=== PATIENT | female | born 1970 | race Caucasian/White ===

== ENCOUNTER → 2022-08-31 | Outpatient (CLI) | payer OTHER ==
[2022-08-31 17:10] LABS: INR 0.9 (<1.2)
[2022-08-31 21:17] LABS: Appearance,Urine Cloudy (Clear); Bilirubin,Urine Negative (Negative); Blood,Urine Negative (Negative); Color,Urine Yellow (Yellow); Ketones,Urine Trace mg/dL (Negative); Nitrite,Urine Negative (Negative); Specific Gravity,Urine 1.026 (1.001-1.030); Urobilinogen,Urine 0.2 (0.2,1.0)
[2022-08-31 21:20] LABS: Bacteria,Urine 2+ /HPF (None Seen)
[2022-09-01 02:02] LABS: African American GFR (CKD) 114.6 (60.0-200.0); Albumin 4.3 g/dL (3.8-4.9); Albumin/Globulin Ratio 1.39 (1.60-3.17); Anion Gap 12.2 mmol/L (10.00-18.00); BUN/Creat Ratio 20.57 Ratio (12.00-20.00); Blood Urea Nitrogen 14.4 mg/dL (9.0-27.0); Calcium 9.5 mg/dL (8.7-10.3); Carbon Dioxide 25.8 mmol/L (20.0-27.5); Globulin 3.1 g/dL (1.6-3.3); Non-African American GFR(CKD) 98.9 (60.0-200.0); Total Bilirubin 0.4 mg/dL (0.30-1.20); Total Protein 7.4 g/dL (6.2-8.2)
[2022-09-01 02:09] LABS: HCT 44.6 % (37.2-46.3); HGB 14.4 g/dL (12.0-15.0); MCH 31.1 pg (27.0-32.0); MCHC 32.3 g/dL (32.0-37.0); MCV 96.3 fL (80.0-97.0); Mean Platelet Volume 10.4 fL (9.5-12.2); NRBC Per 100 WBC 0 /100 WBCS (0.0-0.0); Platelet Count 305 X 10*3/uL (140-440); RBC 4.63 X 10*6/uL (4.10-5.20); WBC 8.91 X 10*3/uL (4.50-10.00)
== END | disposition home or self-care (01) ==
LOC: LABPAT 16:24
PROVIDERS: ATTEND Orthopaedic Surgery
DX: Z01.812 Encounter for preprocedural laboratory examination (principal); M17.11 Unilateral primary osteoarthritis, right knee
CPT/HCPCS: 80053; 81001; 85027; 85610; 85730; 87070

== ENCOUNTER 2022-09-12 07:38 | Observation (INO) | payer OTHER ==
[2022-06-28 12:18] VITALS: BMI 53.9
[~2022-09-12 07:38] MED LIST: ACETAMINOPHEN TAB 500 MG TAB PO PRN; DEXAMETHASONE SOD PHOSPHATE 4 MG/ML 1 ML VIAL IV ONE; GABAPENTIN 300 MG CAP PO PRN; HYDROmorphone 0.5 MG/0.5 ML SYRINGE IVP PRN; LIDOCAINE 1% (10MG/ML) FOR IV START INTRADERMA PRN; MELOXICAM 7.5 MG TAB PO PRN; MIDAZOLAM 2 MG/2 ML VIAL IV PRN; ONDANSETRON 4 MG/2 ML VIAL IVP ONE; TRANEXAMIC ACID IN NACL,ISO-OS 1,000 MG in SALINE 1 100ML.BAG IVPB PRN; ceFAZolin 3 GM in SODIUM CHLORIDE 0.9% 100 ML IVPB PRN
[2022-09-12] MEDS: LACTATED RINGERS 1,000 ML IV SCH (08:15)
[2022-09-12] MEDS ORDERED: bisacodyL 10 MG SUPP RECTAL PRN (08:49)
[2022-09-12] MEDS ORDERED: NALOXONE 0.4 MG/ML 1 ML VIAL IV PRN (08:49)
[2022-09-12] MEDS ORDERED: MAGNESIUM HYDROXIDE 2,400 MG/10 ML CUP PO PRN (08:49)
[2022-09-12] MEDS ORDERED: ONDANSETRON 4 MG/2 ML VIAL IVP PRN (08:49)
[2022-09-12] MEDS ORDERED: HYDROmorphone 0.5 MG/0.5 ML SYRINGE IVP PRN ×2 (08:49)
[2022-09-12] MEDS ORDERED: NA PHOS,M-B/NA PHOS,DI-BA 133 ML ENEMA RECTAL PRN (08:49)
[2022-09-12] MEDS ORDERED: HYDROcodone/APAP 7.5-325MG 1 EACH TAB PO PRN (08:50)
[2022-09-12] MEDS ORDERED: MIDAZOLAM 2 MG/2 ML VIAL IVP ONE (08:57)
[2022-09-12] MEDS ORDERED: ceFAZolin 1,000 MG in SODIUM CHLORIDE 0.9% 1,000 ML IRRIGATION ONE (09:18)
[2022-09-12] MEDS ORDERED: MIDAZOLAM 2 MG/2 ML VIAL ONE (09:18)
[2022-09-12] MEDS ORDERED: SODIUM CHLORIDE 0.9% (PF) 10 ML VIAL ONE (09:18)
[2022-09-12] MEDS ORDERED: ROPIVACAINE 5 MG/ML 30 ML VIAL ONE (09:18)
[2022-09-12] MEDS ORDERED: fentaNYL (PF) 50 MCG/ML 2 ML AMP ONE (09:18)
[2022-09-12] MEDS ORDERED: TRANEXAMIC ACID IN NACL,ISO-OS 1,000 MG/100 ML BAG ONE (09:18)
[2022-09-12] MEDS ORDERED: diphenhydrAMINE 50 MG/ML 1 ML VIAL ONE (09:18)
[2022-09-12] MEDS ORDERED: DEXAMETHASONE SOD PHOSPHATE 10 MG/ML 1 ML VIAL ONE (09:18)
[2022-09-12] MEDS ORDERED: LACTATED RINGERS 1,000 ML IV ONE (10:17)
--- NOTE | 2022-09-12 10:29 | P.OP ---
Date of Procedure: 09/12/22 Preoperative Diagnosis: Severe osteoarthritis right knee Postoperative Diagnosis: Severe osteoarthritis right knee Procedure(s) Performed: Right total knee arthroplasty Implants: Monte[employer] Nephew Journey II CR Oxinium cruciate retaining femoral component size 4, right [employer] Journey nonporous tibial baseplate size 3, right [employer] Journey II, XLPE Deep Dished articular insert, size 11 mm, Size 3-4, right [employer] Journey Kelin II resurfacing patellar component, oval, 32 mm All components were cemented using Palacos R bone cement The articulation is Oxinium on polyethylene Anesthesia: spinal Surgeon: Remigio Jane Cigar Head Perforator #1: Magnolia Little Estimated Blood Loss (ml): 50 Pathology: other (Bone and cartilage) Condition: stable Disposition: PACU Indications for Procedure: The patient's knee is end-stage, and conservative management has failed. The operation of knee replacement has been discussed at length in the office, as well as potential risks and complications. These are inclusive of, but not limited to: Infection, bleeding, scarring, discomfort, stiffness, blood vessel and nerve damage, need for further surgery, failure to relieve symptoms, persistence, recurrence, or worsening of problems, loosening, dislocation, wear, blood clot, pulmonary embolism, , gait dysfunction, stiffness, and other risks as discussed in the office. Patient elects to proceed and the consent form has been signed. Operative Findings: The operative findings are consistent with severe osteoarthritis of the right knee Description of Procedure: Patient was seen in the preoperative area and the consent was reviewed and the operative site was marked with a skin marker. The patient verified the procedure and the operative site. An adductor canal pain catheter and an IPACK block were placed by anesthesia in the preoperative area. The patient was then brought to the operating room and positioned on the operating room table in the supine position. Preoperative antibiotics and a gram of transexamic acid were given intravenously. A spinal anesthetic was administered by the anesthesia department. Care was taken to make sure that all pressure points were adequately padded. A tourniquet was placed on the upper thigh and the lower extremity was prepped with ChloraPrep and draped in usual sterile fashion. A universal timeout was then performed which confirmed the patient's name, surgical site, ALLERGIES, and consent. The lower extremity was then exsanguinated and tourniquet was inflated to 250 mmHg. A standard anterior midline approach to the knee was performed. The skin and subcutaneous tissue were sharply dissected down to the patellar tendon. A medial parapatellar arthrotomy was then performed. The knee was then extended, the patellar was everted, and the knee was flexed. The infra-patellar fat pad was removed in order to enhance exposure. The anterior horns of both menisci were excised, and a release was performed to the posterior medial aspect of the knee. On gross visual inspection, there was complete loss of articular cartilage in the medial and patellofemoral joint spaces. There was also significant cartilage damage in the lateral compartment. There were multiple periarticular osteophytes globally about the knee which were then removed with a Ronguer. The femoral canal was then opened with the 9.5 mm intramedullary drill. The 8 mm intramedullary riddhi was then inserted into the femoral canal with the distal femoral cutting guide set for 5 of valgus. The distal femoral cutting block was then pinned in place. The intramedullary riddhi was then removed, and the distal femur was then cut. The cutting block was then removed and the cut was checked for symmetry. The resected bone was then measured to confirm the appropriate distal femoral resection. Next, the sizing guide was then placed and set for 3 external rotation based off of the epicondylar axis and Elliot's line. Pins were then placed and the drill holes, and the femur was sized with the sizing stylus. The pins were then removed, and the sizing guide was then removed. The spikes of the appropriate size femoral block was then placed into the predrilled holes, and malleted into place. Two 45 mm pins were then placed into the fixation holes on the cutting block. An michael wing was then used to ensure there would be no notching with the anterior cut. The anterior condyles were cut without notching. The anterior chord cut was then performed, followed by the posterior cut, posterior chamfer cut, and the anterior chamfer cut. The collateral ligaments were protected during the entire process. The cutting block was then removed. Any remaining bone and osteophytes were removed from the femur with a Ronguer. Attention was then directed to the tibia. The remaining ACL was removed with a Ronguer, and the tibia was then gently subluxed forward with a large bent knee retractor. Any remaining menisci were excised. The posterior lateral corner was cauterized in order to coagulate the lateral geniculate artery. The extra medullary tibial cutting guide was then placed, set for the appropriate rotation, slope, and depth of resection. The proximal tibia cutting guide was then pinned in place. Proximal tibia was then cut and sized. A curved osteotome was then used to remove any posterior osteophytes from the distal femur. The femoral trial was placed. A narrow saw blade was then used to remove the anterior intracondylar femoral bone. The CR notch trial was then placed. The tibial trial was placed with the appropriate-sized insert. The knee was able to fully extend and flex to 130 and was stable throughout all range of motion. The knee was then extended and the patella was everted. Patella was then measured, and then using an osteotomy guide, the patella was cut at the appropriate level. The patellar component was sized. The patellar drill guide was placed and the patella was drilled. The patella trial was then placed. The knee was then taken through range of motion with the patella trial and the patella tracked normally using the no thumbs technique. The patella trial was then removed. The knee was then flexed and lug holes were drilled through the femoral trial and the femoral trial was then removed. The tibial was then re- exposed, and the tibial broach guide was then pinned in place after it was set for the appropriate rotation to allow for the most coverage without overhang. The tibia was then reamed and broached. The femoral canal was plugged with autologous bone. The cut surfaces of bone were then irrigated with pulsatile lavage. The knee was also irrigated with Irrisept solution. The components were then opened, the cement was mixed. Cement was placed on the backside of the femoral, tibial, and patellar components. Cement was then applied to the tibial surface and pressurized into the surface using finger pressurization technique. The tibial component was then applied and excess cement was removed after it was impacted securely noted to be flush with the cut surface. In similar fashion, the cement was applied to the cut femoral surface, pressurized and using finger pressurization the component was impacted in place. Excess cement was removed. The polyethylene spacer was then implanted and locked into position. Patellar component was then applied in a similar technique and the patellar clamp was used to hold patella in place while the cement hardened. The knee was held in full extension while the cement hardened. Once the cement had fully hardened, the knee was reinspected. Any other cement extrusion was removed the final range of motion testing showed range of motion from 0-130 with excellent stability, both medial and laterally and appropriate alignment of the leg. Patella tracked normally. After the cemented hardened, the tourniquet was released and hemostasis was obtained. A second gram of transexamic acid was given intravenously. The knee was again irrigated. The knee was again taken through range of motion and found to be stable throughout all range of motion of 0-130, and the patella tracked normally. The fascia was then closed with 0 Vicryl followed by #2 strata fix suture. The subcutaneous tissue was closed with 3-0 Vicryl and 3-0 strata fix. Exofin glue was used for the skin and placed with the knee in flexion. After the glue had dried, and Optafoam silver impregnated dressing was applied. A lightly compressive dressing was applied using web roll and Adeel wrap. Patient was then transferred to the stretcher and taken to recovery room in stable condition. Sponge and needle counts were correct. The assistant education director HERMELINDA Last was required due the complexity surgery and the need for a skilled operating room surgical technologist. She assisted in positioning, draping, retraction, and closure of the wound.
[2022-09-12] MEDS ORDERED: ROPIVACAINE 1,100 MG, SODIUM CHLORIDE 0.9% 500 ML 330 ML, EMPTY PAIN BALL 1 EACH MISCELLANE PRN ×2 (11:20)
[2022-09-12] MEDS: SODIUM CHLORIDE 0.9% 1,000 ML IV SCH (12:16)
--- NOTE | 2022-09-12 12:23 | XR ---
EXAMINATION TYPE: XR knee limited RT DATE OF EXAM: 09/12/2022 COMPARISON: NONE TECHNIQUE: Two views submitted HISTORY: Post op FINDINGS: There is a prosthetic knee in near anatomic alignment. There is soft tissue edema and emphysema. IMPRESSION: 1. Postoperative change. Appears in near-anatomic alignment
[2022-09-12] MEDS ORDERED: ALPRAZolam 0.25 MG TAB PO PRN (13:17)
--- NOTE | 2022-09-12 14:39 | P.CONS ---
History of Present Illness - Reason for Consult Consult date: 09/12/22 Medical Management Requesting physician: Remigio Jane - History of Present Illness History of Presenting Illness: Patient is a very pleasant 52-year-old female with a past medical history of rheumatoid arthritis, inflammatory bowel disease, obstructive sleep apnea CPAP dependent nightly, hypertension, asthma, anxiety and depression and osteoarthritis. Patient is currently admitted under orthopedic surgery team status post elective right total knee arthroplasty secondary to severe osteoarthritis of right knee. We have been consulted for medical management throughout patient's hospitalization. Patient seen and fully evaluated at bedside. Patient currently remains slightly sedated but easily awoken via verbal stimuli. Patient currently reports feeling sleepy but denies having any complaints at this time. Patient reports postoperative pain is currently controlled and denies having any postoperative nausea or vomiting. Patient denies having any headache, lightheadedness, dizziness, chest pain, palpitations, shortness of breath, or any other complaints at this time. Review of systems: Pertinent positives and negatives as discussed in HPI, a complete review of systems was performed and all other systems are negative. Physical exam: Vital signs reviewed and stable. General: Nontoxic, no distress and appears stated age. Obese Derm: Skin warm and dry, normal coloration for ethnicity. Postsurgical Dressing/Adeel wrap is clean dry and intact to right lower extremity Head: Atraumatic, normocephalic and symmetric. Eyes: EOMs intact, no lid lag, and anicteric sclera Mouth: no lip lesions, mucus membranes moist Cardiovascular: regular rate and rhythm with normal S1S2, no murmur, positive posterior tibial pulses bilaterally, and cap refill < 2 seconds. Lungs: Respirations even, regular, and unlabored on room air. Lungs CTA bilaterally, no rhonchi, no rales, no wheezing, and no accessory muscle usage. Abdominal: soft, nontender to palpation, no guarding, no appreciable organomegaly Ext: ROM intact. No gross muscle atrophy, no edema, no contractures Neuro: Speech clear, face symmetrical and CN II-XII grossly intact with no noted focal neuro deficits Psych: Alert and oriented to person, place, time, and situation. Appropriate and pleasant affect. Assessment and Plan of Care: Status post right total knee arthroplasty Severe osteoarthritis Management per primary admitting orthopedic surgery team including DVT prophylaxis, pain management, wound/dressing care, weightbearing, and PT/OT. DVT Prophylaxis currently with aspirin 325 mg twice daily. Order placed for morning CBC and BMP and we will follow-up with results and place additional orders as needed based upon these findings. Obstructive sleep apnea Order placed for CPAP nightly and well mapping Rheumatoid arthritis Inflammatory bowel disease Hypertension Anxiety and depression Home medications reviewed. Patient to continue with sulfasalazine 500 mg nightly, metoprolol 50 mg daily, duloxetine 20 mg daily, Zyrtec 10 mg daily, and as needed Xanax 0.125 mg 3 times daily. Thank you for allowing us to participate in the care of this pleasant patient. Do not hesitate to contact us with questions. Someone can be reached from the [facility] hospitalist group all hours of the day at [phone] or via [employer]. Patient was seen independently by Nurse Practitioner. This document was prepared using [employer] dictation software. Please allow for errors in glazing department supervisor while rare they do occur. Past Medical History Past Medical History: Asthma, Hypertension, Rheumatoid Arthritis (RA), Sleep Apnea/CPAP/BIPAP Additional Past Medical History / Comment(s): had molar pulled due to old filling and tooth being sensitive-placed on amoxicillin prophylactically & finishing dose this week. CPAP use, COVID infection Apr 2022-(in bed for 3 weeks,continue to have long covid symptoms),has fast heart rate History of Any Multi-Drug Resistant Organisms: None Reported Past Surgical History: Cholecystectomy, Joint Replacement, Orthopedic Surgery Additional Past Surgical History / Comment(s): Total left knee replacement. Right achilles tendon repair. Past Anesthesia/Blood Transfusion Reactions: No Reported Reaction Additional Past Anesthesia/Blood Transfusion Reaction / Comm: Mother hard time waking up. No hx blood transfusion Past Psychological History: ADD/ADHD, Anxiety Additional Psychological History / Comment(s): ADD. Smoking Status: Never smoker Past Alcohol Use History: None Reported Past Drug Use History: None Reported - Past Family History Father Family Medical History: Cancer Additional Family Medical History / Comment(s): Prostate cancer. Sister(s) Family Medical History: Cancer Additional Family Medical History / Comment(s): 1st sister had breast and bone cancer and 2nd sister had melanoma. Medications and Allergies Home Medications Medication Instructions Recorded Confirmed Type ALPRAZolam [Xanax] 0.125 mg PO TID PRN 06/28/22 09/12/22 History Adalimumab [Humira(Cf) Pen] 80 mg SQ Q14D 06/28/22 09/12/22 History DULoxetine HCL [Cymbalta] 20 mg PO HS 06/28/22 09/12/22 History Etodolac [Lodine] 500 mg PO BID 06/28/22 09/12/22 History Folic Acid 1 mg PO DAILY 06/28/22 09/12/22 History Lisdexamfetamine Dimesylate 50 mg PO DAILY 06/28/22 09/12/22 History [Vyvanse] Tolterodine ER [Detrol LA] 4 mg PO DAILY 06/28/22 09/12/22 History sulfaSALAzine [Azulfidine] 500 mg PO HS 06/28/22 09/12/22 History Metoprolol Succinate (ER) [Toprol 50 mg PO QAM 09/06/22 09/12/22 History Xl] metHOTREXate sodium [Methotrexate] 17.5 mg PO FR 09/06/22 09/12/22 History Aspirin 325 mg PO BID #60 tab 09/12/22 Rx Cetirizine HCl [Zyrtec] 10 mg PO DAILY 09/12/22 09/12/22 History HYDROcodone/APAP 7.5-325MG [[place] 1 - 2 tab PO Q6H PRN #32 tab 09/12/22 Rx 7.5-325] Sennosides [Senokot] 2 tab PO DAILY PRN #60 tablet 09/12/22 Rx Allergies Allergy/AdvReac Type Severity Reaction Status Date / Time latex Allergy Rash/Hives Verified 09/06/22 13:32 FREEDOM WIPES AdvReac Itching Uncoded 09/12/22 09:17 Physical Exam Vitals: Vital Signs Temp Pulse Pulse Resp BP BP Pulse Ox 09/12/22 12:46 97.7 F 77 17 90/60 98 09/12/22 12:25 77 16 106/56 97 09/12/22 12:10 79 16 85/52 99 09/12/22 11:55 78 16 86/49 98 09/12/22 11:40 78 16 92/50 97 09/12/22 11:25 80 16 88/49 97 09/12/22 11:11 85 16 91/50 96 09/12/22 10:56 97.5 F L 87 16 82/46 92 L 09/12/22 09:10 78 16 106/70 96 09/12/22 08:15 80 104/63 09/12/22 07:59 98.6 F 86 16 99/54 98 Intake and Output 09/11/22 09/12/22 09/12/22 22:59 06:59 14:59 Intake Total 2501 Output Total 50 Balance 2451 Intake: IV 2501 Output: Estimated Blood Loss 50 Other: Weight 136 kg
[2022-09-12] MEDS: HYDROmorphone 1 MG/ML 1 ML SYRINGE IVP PRN ×2 (16:58→20:11)
[2022-09-12] MEDS: ceFAZolin 3 GM in SODIUM CHLORIDE 0.9% 100 ML IVPB SCH (16:58)
[2022-09-12] MEDS: ASPIRIN 325 MG TAB PO SCH (20:23)
[2022-09-12] MEDS ORDERED: sulfaSALAzine 500 MG TAB PO SCH (21:00)
[2022-09-12] MEDS ORDERED: SENNOSIDES-DOCUSATE SODIUM 1 EACH TAB PO SCH (21:00)
[2022-09-12] MEDS ORDERED: DULoxetine HCL 20 MG CAPSULE.DR PO SCH (21:00)
--- NOTE | 2022-09-12 22:40 | P.ANPRN ---
Procedure Note - Anesthesia - Nerve Block Performed Right Adductor Canal Infusion Date of Procedure: 09/12/22 Procedure Start Time: 08:56 Procedure Stop Time: 09:00 Location of Patient: PreOp Indication: Acute Post-Operative Pain, Requested by Surgeon Sedation Type: Sedate with meaningful contact maintained Preparation: Sterile Prep Position: Supine Catheter Depth at Skin (cm): 8 Catheter: Indwelling Needle Types: On-Q Needle Gauge: 20 Ultrasound used to visualize needle placement: Yes Ultrasound used to observe medication spread: Yes Injectate: 0.5% Ropivacaine (see comment for volume) (15mL) Blood Aspirated: No Pain Paresthesia on Injection Noted: No Resistance on Injection: Normal Image Stored and Saved: Yes Events: Uneventful and Well Tolerated Right iPack Single Date of Procedure: 09/12/22 Procedure Start Time: :00 Procedure Stop Time: 09:05 Location of Patient: PreOp Indication: Acute Post-Operative Pain, Requested by Surgeon Sedation Type: Sedate with meaningful contact maintained Preparation: Sterile Prep Position: Supine Needle Types: Pajunk Needle Gauge: 20 Ultrasound used to visualize needle placement: Yes Ultrasound used to observe medication spread: Yes Injectate: 0.5% Ropivacaine (see comment for volume) (15mL) Blood Aspirated: No Pain Paresthesia on Injection Noted: No Resistance on Injection: Normal Image Stored and Saved: Yes Events: Uneventful and Well Tolerated
[2022-09-13] MEDS: SODIUM CHLORIDE 0.9% 1,000 ML IV SCH (00:20)
[2022-09-13] MEDS: HYDROcodone/APAP 7.5-325MG 1 EACH TAB PO PRN ×3 (00:21→12:59)
[2022-09-13] MEDS: ceFAZolin 3 GM in SODIUM CHLORIDE 0.9% 100 ML IVPB SCH (00:28)
[2022-09-13] MEDS: HYDROmorphone 1 MG/ML 1 ML SYRINGE IVP PRN ×2 (01:38→10:36)
[2022-09-13] MEDS: LACTATED RINGERS 1,000 ML IV SCH (05:11)
--- NOTE | 2022-09-13 07:01 | P.PN ---
Progress Note - Text Progress Note Date: 09/13/22 Anesthesia progress note: POD#1 right total knee with Dr. Jane. Adductor canac nerve block catheter in place. Patient states pain is 7/10 with numbness over the anterior aspect of the knee from the nerve block. Patient denies headache, lightheadeness, dizziness, ringing in ears or numbness in the mouth.
[2022-09-13 07:26] VITALS: BP 95/58; PULSE 100; TEMP 98.3
--- NOTE | 2022-09-13 07:46 | P.DS ---
Providers Expected date of discharge: 09/13/22 Attending physician: Remigio Jane Consults: 09/12/22 08:49 Consult Physician Routine Consulting Provider: Baldemar Courtney Consult Reason/Comments: medical management Do you want consulting provider notified?: Yes Primary care physician: Angel Schmitz - Discharge Diagnosis(es) (1) Primary localized osteoarthritis of right knee Current Visit: Yes Status: Acute (2) Status post total right knee replacement Current Visit: Yes Status: Acute Hospital Course: This is a 52-year-old female who was last seen with complaint of continued right knee pain. The patient has a known history of degenerative arthritis of the right knee and presents to discuss surgical options. After discussion and consideration the patient elects to proceed with total right knee arthroplasty. The patient is seen preoperatively by her primary care physician and cleared for surgery. The patient is admitted to [facility] for total right knee arthroplasty. The procedures performed without complication or sequelae. Pat ient is doing well postoperatively. Vital signs are stable at discharge. Labs are stable at discharge. the patient is ambulating well with walker with minimal assistance. The patient is discharged to home on postop day #1 pending medical clearance. Please see orders and refer to the med rec for accurate list of medications. Patient Condition at Discharge: Good Plan - Discharge Summary Discharge Rx Participant: Yes New Discharge Prescriptions: New HYDROcodone/APAP 7.5-325MG [[place] 7.5-325] 1 - 2 tab PO Q6H PRN #32 tab PRN Reason: Pain Sennosides [Senokot] 2 tab PO DAILY PRN #60 tablet PRN Reason: Constipation Aspirin 325 mg PO BID #60 tab No Action DULoxetine HCL [Cymbalta] 20 mg PO HS Lisdexamfetamine Dimesylate [Vyvanse] 50 mg PO DAILY Adalimumab [Humira(Cf) Pen] 80 mg SQ Q14D sulfaSALAzine [Azulfidine] 500 mg PO HS Etodolac [Lodine] 500 mg PO BID ALPRAZolam [Xanax] 0.125 mg PO TID PRN PRN Reason: Anxiety Tolterodine ER [Detrol LA] 4 mg PO DAILY Folic Acid 1 mg PO DAILY Metoprolol Succinate (ER) [Toprol Xl] 50 mg PO QAM metHOTREXate sodium [Methotrexate] 17.5 mg PO FR Cetirizine HCl [Zyrtec] 10 mg PO DAILY Discharge Medication List ALPRAZolam [Xanax] 0.125 mg PO TID PRN 06/28/22 [History] Adalimumab [Humira(Cf) Pen] 80 mg SQ Q14D 06/28/22 [History] DULoxetine HCL [Cymbalta] 20 mg PO HS 06/28/22 [History] Etodolac [Lodine] 500 mg PO BID 06/28/22 [History] Folic Acid 1 mg PO DAILY 06/28/22 [History] Lisdexamfetamine Dimesylate [Vyvanse] 50 mg PO DAILY 06/28/22 [History] Tolterodine ER [Detrol LA] 4 mg PO DAILY 06/28/22 [History] sulfaSALAzine [Azulfidine] 500 mg PO HS 06/28/22 [History] Metoprolol Succinate (ER) [Toprol Xl] 50 mg PO QAM 09/06/22 [History] metHOTREXate sodium [Methotrexate] 17.5 mg PO FR 09/06/22 [History] Aspirin 325 mg PO BID #60 tab 09/12/22 [Rx] Cetirizine HCl [Zyrtec] 10 mg PO DAILY 09/12/22 [History] HYDROcodone/APAP 7.5-325MG [[place] 7.5-325] 1 - 2 tab PO Q6H PRN #32 tab 09/12/22 [Rx] Sennosides [Senokot] 2 tab PO DAILY PRN #60 tablet 09/12/22 [Rx] Follow up Appointment(s)/Referral(s): Remigio Jane DO [Doctor of Osteopathic Medicine] - 2 Weeks Ambulatory/Diagnostic Orders: Continuous Passive Motion (CPM) Machine [DME.AMB1] Time Frame: 3 Weeks, Facility: [facility], Location: Case Management Continuous Passive Motion (CPM) Machine [DME.AMB1] Time Frame: 3 Weeks, Facilit y: [facility], Location: Case Management Activity/Diet/Wound Care/Special Instructions: Weightbearing as tolerated with a walker. CPM 5-6h daily as tolerated. Leave dressing intact. Dressing may be removed by home care nurse or by patient in 7 days. Then change dressing twice daily until follow up. May shower with initial dressing intact and after removal. If dressing become saturated, please remove. Recommend use of compression stockings daily until follow up to help prevent swelling and blood clots. May remove at night before sleeping. Please take aspirin 325mg twice daily for 30 days to prevent blood clots. Please follow up with [facility] and call with any questions or concerns, . Discharge Disposition: HOME WITH HOME HEALTH SERVICES
[2022-09-13] MEDS: ASPIRIN 325 MG TAB PO SCH (08:12)
[2022-09-13] MEDS ORDERED: METOPROLOL SUCCINATE (ER) 50 MG TAB.ER.24H PO SCH (09:00)
[2022-09-13] MEDS ORDERED: LORATADINE 10 MG TAB PO SCH (09:00)
[2022-09-13] MEDS ORDERED: OXYBUTYNIN 10 MG TAB.ER.24 PO SCH (09:00)
[2022-09-13] MEDS ORDERED: FOLIC ACID 1 MG TAB PO SCH (09:00)
[2022-09-13 09:24] LABS: African American GFR (CKD) 97.6 (60.0-200.0); Anion Gap 10.1 mmol/L (10.00-18.00); BUN/Creat Ratio 14.75 Ratio (12.00-20.00); Blood Urea Nitrogen 11.8 mg/dL (9.0-27.0); Calcium 8.7 mg/dL (8.7-10.3); Carbon Dioxide 23.9 mmol/L (20.0-27.5); Non-African American GFR(CKD) 84.2 (60.0-200.0); Potassium 4.3 mmol/L (3.5-5.5)
--- NOTE | 2022-09-13 09:35 | P.PN ---
Subjective Progress Note Date: 09/13/22 Hospital course: Patient is a very pleasant 52-year-old female with a past medical history of rheumatoid arthritis, inflammatory bowel disease, obstructive sleep apnea CPAP dependent nightly, hypertension, asthma, anxiety and depression and osteoarthritis. Patient is currently admitted under orthopedic surgery team status post elective right total knee arthroplasty secondary to severe osteoarthritis of right knee. We have been consulted for medical management throughout patient's hospitalization. Physical exam: Patient seen and fully evaluated at bedside this morning. Patient sitting up in chair reporting she is ready to go. Patient reports controlled postoperative pain and denies having any complaints, questions, or concerns at this time. Vital signs reviewed and stable. General: Nontoxic, no distress and appears stated age. Obese Derm: Skin warm and dry, normal coloration for ethnicity. Postsurgical Dressing/Adeel wrap is clean dry and intact to right lower extremity Head: Atraumatic, normocephalic and symmetric. Eyes: EOMs intact, no lid lag, and anicteric sclera Mouth: no lip lesions, mucus membranes moist Cardiovascular: regular rate and rhythm with normal S1S2, no murmur, positive posterior tibial pulses bilaterally, and cap refill < 2 seconds. Lungs: Respirations even, regular, and unlabored on room air. Lungs CTA bilaterally, no rhonchi, no rales, no wheezing, and no accessory muscle usage. Abdominal: soft, nontender to palpation, no guarding, no appreciable organomegaly Ext: ROM intact. No gross muscle atrophy, no edema, no contractures Neuro: Speech clear, face symmetrical and CN II-XII grossly intact with no noted focal neuro deficits Psych: Alert and oriented to person, place, time, and situation. Appropriate and pleasant affect. Assessment and Plan of Care: Postoperative blood loss anemia, expected finding. Leukocytosis, reactive -Postoperative labs reviewed. BMP was unremarkable. CBC showing leukocytosis with WBC count of 15.02 believed to be reactive secondary to surgical procedure as patient shows no signs of infectious process. Hemoglobin stable at 11.7 with preoperative hemoglobin of 14.4. Status post right total knee arthroplasty Severe osteoarthritis Management per primary admitting orthopedic surgery team including DVT prophylaxis, pain management, wound/dressing care, weightbearing, and PT/OT. DVT Prophylaxis currently with aspirin 325 mg twice daily. Obstructive sleep apnea Order placed for CPAP nightly and well mapping Rheumatoid arthritis Inflammatory bowel disease Hypertension Anxiety and depression Medically, patient is stable for discharge at this time once cleared by primary admitting orthopedic surgery team. Recommend patient to continue daily medication regimen with with sulfasalazine 500 mg nightly, metoprolol 50 mg daily, duloxetine 20 mg daily, Zyrtec 10 mg daily, and as needed Xanax 0.125 mg 3 times daily. Thank you for allowing us to participate in the care of this pleasant patient. Do not hesitate to contact us with questions. Someone can be reached from the [facility] hospitalist group all hours of the day at [phone] or via [email or web address]. Patient was seen independently by Nurse Practitioner. This document was prepared using [employer] dictation software. Please allow for errors in photographic lithographer while rare they do occur. Objective - Vital Signs Vital signs: Vital Signs Temp 98.3 F 09/13/22 07:25 Pulse 100 09/13/22 07:25 Resp 19 09/13/22 07:25 BP 95/58 09/13/22 07:25 Pulse Ox 96 09/13/22 07:25 FiO2 Intake & Output 09/12/22 09/13/22 09/13/22 18:59 06:59 18:59 Intake Total 2681 Output Total 50 Balance 2631 Weight 136 kg Intake: IV 2501 Oral 180 Output: Estimated Blood Loss 50 Other: # Voids 1 2 - Labs CBC & Chem 7: 09/13/22 05:58 09/13/22 05:58
[2022-09-13 10:18] LABS: Basophils # (A) 0.02 X 10*3/uL (0.00-0.10); Basophils % (A) 0.1 %; Eosinophils # (A) 0 X 10*3/uL (0.04-0.35); Eosinophils % (A) 0 %; HCT 36.6 % (37.2-46.3); HGB 11.7 g/dL (12.0-15.0); Immature Grans, Automated 0.8 %; Lymphocytes # (A) 0.85 X 10*3/uL (0.90-5.00); Lymphocytes % (A) 5.7 %; MCH 30.8 pg (27.0-32.0); MCV 96.3 fL (80.0-97.0); Mean Platelet Volume 10.3 fL (9.5-12.2); Monocytes # (A) 1.41 X 10*3/uL (0.20-1.00); Monocytes % (A) 9.4 %; NRBC Per 100 WBC 0 /100 WBCS (0.0-0.0); Neutrophils # (A) 12.62 X 10*3/uL (1.80-7.70); Platelet Count 303 X 10*3/uL (140-440); RDW 13.2 % (11.5-14.5); WBC 15.02 X 10*3/uL (4.50-10.00)
[2022-09-13 11:51] VITALS: RESP 18
== END 2022-09-13 14:43 | disposition home or self-care (01) ==
LOC: OR 07:38 → 4SSUR 08:49 → OR 08:49 → 4SSUR 10:50
PROVIDERS: ADMIT Orthopaedic Surgery; ATTEND Orthopaedic Surgery
DX: M17.11 Unilateral primary osteoarthritis, right knee (principal); I10 Essential (primary) hypertension; M06.9 Rheumatoid arthritis, unspecified; G47.33 Obstructive sleep apnea (adult) (pediatric); J45.909 Unspecified asthma, uncomplicated; F90.9 Attention-deficit hyperactivity disorder, unspecified type; K58.9 Irritable bowel syndrome, unspecified; F32.A Depression, unspecified; F41.9 Anxiety disorder, unspecified; R00.0 Tachycardia, unspecified; U09.9 Post COVID-19 condition, unspecified; E66.9 Obesity, unspecified; Z68.43 Body mass index [BMI] 50.0-59.9, adult; Z79.811 Long term (current) use of aromatase inhibitors; Z79.899 Other long term (current) drug therapy; Z91.040 Latex allergy status; Z91.048 Other nonmedicinal substance allergy status; Z90.49 Acquired absence of other specified parts of digestive tract; Z87.828 Personal history of other (healed) physical injury and trauma; Z96.652 Presence of left artificial knee joint; Z98.890 Other specified postprocedural states; Z80.3 Family history of malignant neoplasm of breast; Z80.8 Family history of malignant neoplasm of other organs or systems; Z80.42 Family history of malignant neoplasm of prostate
CPT/HCPCS: 97162; 81025; 64999; 64448; 80048; 85025; 88300; 73560; 27447; G0378; C1713; C1776; C1751; J2250; J1200; J1100 ×2; J0690 ×3; J2405; J3010; J1170 ×2; J2795

== ENCOUNTER → 2023-05-09 | Outpatient (CLI) | payer OTHER ==
[2023-05-09 18:56] LABS: Basophils # (A) 0.05 X 10*3/uL (0.00-0.10); Basophils % (A) 0.6 %; Eosinophils # (A) 0.14 X 10*3/uL (0.04-0.35); Eosinophils % (A) 1.7 %; HCT 42.2 % (37.2-46.3); HGB 13.5 g/dL (12.0-15.0); Lymphocytes # (A) 2.21 X 10*3/uL (0.90-5.00); Lymphocytes % (A) 26.8 %; MCH 31.3 pg (27.0-32.0); MCV 97.7 FL (80.0-97.0); Mean Platelet Volume 9.7 FL (9.5-12.2); Monocytes # (A) 0.67 X 10*3/uL (0.20-1.00); Monocytes % (A) 8.1 %; NRBC Per 100 WBC 0 X 10*3/uL (0.00-0.01); Neutrophils # (A) 5.12 X 10*3/uL (1.80-7.70); Neutrophils % (A) 62.2 %; Platelet Count 309 X 10*3/uL (140-440); RBC 4.32 X 10*6/uL (4.10-5.20); RDW 13.3 % (11.5-14.5); WBC 8.24 X 10*3/uL (4.50-10.00)
[2023-05-09 20:31] LABS: Erythrocyte Sedimentation Rate 58 mm/Hr (0-30)
== END | disposition home or self-care (01) ==
LOC: LABWHC1 13:13
PROVIDERS: ATTEND Orthopaedic Surgery
DX: Z09 Encounter for follow-up examination after completed treatment for conditions other than malignant neoplasm (principal); M25.561 Pain in right knee; Z96.651 Presence of right artificial knee joint
CPT/HCPCS: 36415; 85025; 85652; 86140

== ENCOUNTER → 2023-05-09 | Outpatient (CLI) | payer OTHER ==
--- NOTE | 2023-05-09 14:13 | CT ---
EXAMINATION TYPE: CT knee RT wo con DATE OF EXAM: 05/09/2023 COMPARISON: Limited right knee x-ray September 12, 2022 HISTORY: pain, artificial knee joint placed September 12, localized swelling mass and lump. Rheumatoid arthr itis. CT DLP: 526.3 mGycm Automated exposure control for dose reduction was used. FINDINGS: Metallic hardware from total right knee arthroplasty is redemonstrated causing streak artifact making evaluation suboptimal. Position is stable and satisfactory. No acute displaced fracture is seen. No suspicious surrounding lucency to suggest loosening or infection. Scar tissue anteriorly over the dis valorie femur is identified. There is small to moderate size suprapatellar joint effusion noted. Muscle b ulk is maintained. No well-formed fluid collection or abscess is clearly seen. IMPRESSION: As above.
== END | disposition home or self-care (01) ==
LOC: RADCTMAIN 11:55
PROVIDERS: ATTEND Orthopaedic Surgery
DX: M25.461 Effusion, right knee (principal); M25.561 Pain in right knee; Z96.651 Presence of right artificial knee joint